=== PATIENT | female | born 1975 | race African-American/Black ===

== ENCOUNTER 2018-06-12 18:46 | Emergency (ER) | payer BC ==
--- NOTE | 2018-06-12 20:26 | ER Document Report ---
ED Medical Screen (RME) - General Chief Complaint: Lower Abdominal Pain Stated Complaint: PELVIC PAIN Time Seen by Provider: 06/12/18 20:19 TRAVEL OUTSIDE OF THE [place] IN LAST 30 DAYS: No - HPI Notes: 06/12/18 20:23 Patient is a 42-year-old female no significant past medical history who presents to the ED complaining of bilateral lower pelvic pain, scant vaginal discharge without odor, burning with urination 1-2 days. Her last menstrual period was the end of May. She is eating and drinking without any difficulties. She is having normal bowel movements. Denies any headache, fever, URI, sore throat, chest pain, palpitations, syncope , cough, shortness of breath, wheeze, dyspnea, nausea/vomiting/diarrhea, urinary retention, dysuria, hematuria, back pain, loss of control of bowel or bladder, or rash. I have treated and performed a rapid initial assessment of this patient. A comprehensive ED assessment and evaluation of the patient, analysis of test results and completion of medical decision making process will be conducted by additional ED providers. PHYSICAL EXAMINATION: GENERAL: Well-appearing, well-nourished and in no acute distress. A&Ox4. Answers questions appropriately. LUNGS: Breath sounds clear to auscultation bilaterally and equal. No wheezes rales or rhonchi. HEART: Regular rate and rhythm without murmurs, rubs, gallops. ABDOMEN: Soft, nondistended abdomen. No guarding, no rebound. Normal bowel sounds present. No CVA tenderness bilaterally. + mild lower pelvic tenderness , difficult to thoroughly assess in a chair, however. Extremities: No cyanosis, clubbing, or edema b/l. NEUROLOGICAL: Normal speech, normal gait. PSYCH: Normal mood, normal affect. - Related Data Allergies/Adverse Reactions: Iodinated Contrast- Oral and IV Dye [IV Dye, Iodine Containing] Allergy (Severe , Verified 11/24/15 02:04) gadubenate dimeglumine Allergy (Severe, Uncoded 11/24/15 02:04) Past Medical History - Past Medical History Cardiac Medical History: Denies: Hx Coronary Artery Disease, Hx Heart Attack, Hx Hypertension Pulmonary Medical History: Reports: Hx Asthma - As a child, Hx Pneumonia - As a child Denies: Hx Bronchitis, Hx COPD Neurological Medical History: Denies: Hx Cerebrovascular Accident, Hx Seizures Musculoskeltal Medical History: Denies Hx Arthritis Past Surgical History: Reports: Hx Thyroid Surgery, Hx Tubal Ligation - Immunizations Hx Diphtheria, Pertussis, Tetanus Vaccination: Yes Physical Exam - Vital signs Vitals: Temp Pulse Resp BP Pulse Ox 98.4 F 75 15 160/70 H 100 06/12/18 19:47 06/12/18 19:47 06/12/18 19:47 06/12/18 19:47 06/12/18 19:47 Course - Vital Signs Vital signs: Temp Pulse Resp BP Pulse Ox 98.4 F 75 15 160/70 H 100 06/12/18 19:47 06/12/18 19:47 06/12/18 19:47 06/12/18 19:47 06/12/18 19:47 Doctor's Discharge - Discharge Referrals: SHAHRIAR DE LOS SANTOS NP [Primary Care Provider] - Follow up as needed
[2018-06-12 21:09] LABS: APPEARANCE,URINE SLIGHTLY-CLOUDY; BILIRUBIN,URINE NEGATIVE (NEGATIVE); COLOR,URINE YELLOW; GLUCOSE, URINE NEGATIVE (NEGATIVE); KETONES,URINE NEGATIVE (NEGATIVE); LEUKOCYTE ESTERASE,URINE NEGATIVE (NEGATIVE); NITRITE,URINE NEGATIVE (NEGATIVE); PROTEIN,URINE NEGATIVE (NEGATIVE); URINE SPECIFIC GRAVITY 1.021
--- NOTE | 2018-06-12 22:57 | RADIOLOGY REPORT (SQ) ---
EXAM DESCRIPTION: US TRANSVAGINAL COMPLETED DATE/TME: 06/12/2018 20:22 CLINICAL HISTORY: 42 years, Female, Pelvic pain. LMP 06/05/2018, COMPARISON: None. TECHNIQUE: Transabdominal sonogram of the pelvis. Multiple grayscale and color Doppler images. LIMITATIONS: None. FINDINGS: The uterus is anteverted and measures 9.5 x 4.4 x 5.8 cm. The uterus appears bulky and globular in contour with diffuse heterogeneous myometrial echotexture without focal lesion. Endometrial stripe is within normal limits in thickness measuring 6 mm. Multiple subcentimeter rounded anechoic structures in the cervix most likely representing nabothian cysts. Right ovary measures 1.8 x 1.7 x 1.3 cm. Evidence of flow on color Doppler. No suspicious right adnexal lesion. Left ovary measures 2.6 x 1.6 x 1.3 cm. Evidence of flow on color Doppler. No suspicious left adnexal lesion. No free pelvic fluid. IMPRESSION: Indeterminate sonographic appearance of the uterus which may represent underlying adenomyosis. Correlation with pelvic MRI can be obtained to further evaluate. 2011 [employer]- All Rights Reserved
[2018-06-12 23:46] LABS: EPITHELIALS (WET MOUNT) 3+ EPITHELIALS SEEN; RBCS (WET MOUNT) RARE RBCS SEEN; T.VAGINALIS (WET MOUNT) NO TRICHOMONAS SEEN; WBCS (WET MOUNT) NO WBCS SEEN; YEAST (WET MOUNT) NO YEAST SEEN
--- NOTE | 2018-06-13 00:04 | ER Document Report ---
ED General - General Chief Complaint: Lower Abdominal Pain Stated Complaint: PELVIC PAIN Time Seen by Provider: 06/12/18 20:19 TRAVEL OUTSIDE OF THE [place] IN LAST 30 DAYS: No - HPI Patient complains to provider of: Abdominal pain Onset: Other - Ms. Quiroz is a 42-year-old female presents for evaluation of bilateral pain in the abdomen and the lower aspect above her vagina. She notes that this pain developed today with some associated cramping, she denies any change in her pelvic output but does note that she feels like the character of her discharge as far as odor has changed. She denies any recent changes in sexual partners. She denies any previous episodes of similar pain in the past. Nothing is seemed to make the pain any better, nothing seems to make it any worse she did take some ibuprofen as well as a BC powder which only modestly improved her symptoms. She denies any chance that she could be at this time, denies any chest pain shortness of breath lightheadedness or other symptoms. She does work moving heavy packages frequently but does not recall any specific trauma or inciting event. - Related Data Allergies/Adverse Reactions: Iodinated Contrast- Oral and IV Dye [IV Dye, Iodine Containing] Allergy (Severe , Verified 06/12/18 22:05) gadubenate dimeglumine Allergy (Severe, Uncoded 06/12/18 22:05) Past Medical History - General Information source: Patient Last Menstrual Period: 06/05/2018 - Social History Smoking Status: Never Smoker Chew tobacco use (# tins/day): No Drug Abuse: None Family History: DM, Hypertension Patient has suicidal ideation: No Patient has homicidal ideation: No - Past Medical History Cardiac Medical History: Denies: Hx Coronary Artery Disease, Hx Heart Attack, Hx Hypertension Pulmonary Medical History: Reports: Hx Asthma - As a child, Hx Pneumonia - As a child Denies: Hx Bronchitis, Hx COPD Neurological Medical History: Denies: Hx Cerebrovascular Accident, Hx Seizures Renal/ Medical History: Denies: Hx Peritoneal Dialysis Musculoskeletal Medical History: Denies Hx Arthritis Past Surgical History: Reports: Hx Thyroid Surgery, Hx Tubal Ligation - Immunizations Hx Diphtheria, Pertussis, Tetanus Vaccination: Yes Review of Systems - Review of Systems -: Yes All other systems reviewed and negative Physical Exam - Vital signs Vitals: Temp Pulse Resp BP Pulse Ox 98.4 F 75 15 160/70 H 100 09/04/18 19:47 06/12/18 19:47 06/12/18 19:47 06/12/18 19:47 06/12/18 19:47 - General General appearance: Appears well In distress: None - HEENT Head: Normocephalic Eyes: Normal Conjunctiva: Normal Cornea: Normal Extraocular movements intact: Yes Eyelashes: Normal - Respiratory Respiratory status: No respiratory distress Chest status: Nontender Breath sounds: Normal Chest palpation: Normal - Cardiovascular Rhythm: Regular Heart sounds: Normal auscultation Murmur: No - Abdominal Inspection: Normal Distension: No distension Tenderness: Tender - Tender along the inguinal crease bilaterally superior to the vagina - Back Back: Normal - Extremities General upper extremity: Normal inspection, Nontender, Normal strength, Normal temperature General lower extremity: Normal inspection, Nontender, Normal strength, Normal temperature - Neurological Neuro grossly intact: Yes Cognition: Normal Orientation: AAOx4 Angie Coma Scale Eye Opening: Spontaneous Angie Coma Scale Verbal: Oriented Angie Coma Scale Motor: Obeys Commands Angie Coma Scale Total: 15 Speech: Normal Cranial nerves: Normal - Psychological Associated symptoms: Normal affect Course - Re-evaluation Re-evalutation: 06/13/18 07:29 This 42-year-old female presents for evaluation of pain bilaterally along the inguinal crease. Given that this pain is atypical in nature bilateral and colicky patient through triage had an ultrasound ordered as well as urine test. On examination she did note that she had a change in the character, will plan for pelvic swabs. Patient's ultrasound does not demonstrate any obvious free fluid in the pelvis, no torsion, no fibroids, patient's abdominal examination remains relatively benign there is no appreciable rebound or guarding there is no tenderness in the right lower quadrant or left lower quadrant. I did speak to the patient about potential options as her swab does not demonstrate an obvious bacterial vaginosis and trichomoniasis or other disorder. I offered potential CT imaging which she declined. I did offer further blood tests which she declined. Urinalysis did not demonstrate an obvious urinary tract infection. Upon discussing results she stated I must have strained a muscle while I was at work. Given that she believes that she is a muscular strain related likely to moving heavy boxes believe patient is likely safe for discharge with return precautions she agrees with this course of action at this time do not believe this represents a torsion, do not believe this represents appendicitis or colitis diverticulitis or some other more sinister intra-abdominal process. - Vital Signs Vital signs: Temp Pulse Resp BP Pulse Ox 98.5 F 68 16 148/88 H 100 06/13/18 00:49 06/13/18 00:49 06/13/18 00:49 06/13/18 00:49 06/13/18 00:49 - Laboratory Laboratory results interpreted by me: 06/12/18 20:28 Urine Urobilinogen 4.0 H Discharge - Discharge Clinical Impression: Abdominal pain Qualifiers: Abdominal location: unspecified location Qualified Code(s): R10.9 - Unspecified abdominal pain Condition: Good Disposition: HOME, SELF-CARE Instructions: Abdominal Pain ([facility]), Pelvic Pain ([facility]) Additional Instructions: You were seen for pelvic pain in the emergency department today. No obvious infection was identified as a cause for your pelvic pain. Use the medication prescribed only as needed, return for worsening pain fevers chills inability to eat or drink or other symptoms. Forms: Elevated Blood Pressure, Return to Work Referrals: SHAHRIAR DE LOS SANTOS NP [Primary Care Provider] - Follow up as needed
[2018-06-13] MEDS ORDERED: HYDROCODONE/ACETAMINOPHEN 5-325 MG (6 TAB/ER DISP) PO PRN (00:37)
[2018-06-13] MEDS ORDERED: HYDROCODONE/ACETAMINOPHEN 5-325 MG TABLET PO ONE (00:38)
[2018-06-13 00:50] VITALS: BP 148/88
[2018-06-13 01:17] LABS: CHLAM PCR NOT DETECTED (NOT DETECT); GON PCR NOT DETECTED (NOT DETECT)
== END 2018-06-13 00:45 | disposition home or self-care (01) ==
LOC: ER 18:46
DX: R10.2 Pelvic and perineal pain (principal); R39.89 Other symptoms and signs involving the genitourinary system; Z91.041 Radiographic dye allergy status
CPT/HCPCS: 76830; 81001; 81025; 87210; 87491; 87591; 93976; 99284